=== PATIENT | female | born 1980 | race Two or more races ===

== ENCOUNTER → 2021-12-07 | Outpatient (CLI) | payer BC ==
--- NOTE | 2021-12-07 15:50 | KCIC ---
EXAM: Left knee, 3 views; right knee, 3 views. HISTORY: Pain. Fall. COMPARISON: None. FINDINGS: 3 views of both knees are obtained. There is no fracture, dislocation or subluxation. There is no joint effusion. IMPRESSION: No acute osseous finding. Electronically signed by: Maggie Farrell MD (12/07/2021 3:48 PM) [id number]
== END ==
LOC: KCIC 14:43
PROVIDERS: ATTEND Family Medicine
DX: M25.562 Pain in left knee (principal); M25.561 Pain in right knee; W19.XXXA Unspecified fall, initial encounter
CPT/HCPCS: 73562